=== PATIENT | female | born 1965 | race Caucasian/White ===

== ENCOUNTER → 2020-04-29 09:35 | Outpatient (CLI) | payer BC, SELFPAY ==
[2020-05-02 04:50] LABS: HPV APTIMA, High Risk Negative (Negative); HPV Reflexed? NOT INDICATED
== END ==
PROVIDERS: Visit Provider Student in an Organized Health Care Education/Training Program
DX: Z12.4 Encounter for screening for malignant neoplasm of cervix (principal)
CPT/HCPCS: 88175; G0145